=== PATIENT | female | born 1950 | race African-American/Black ===

== ENCOUNTER 2017-01-16 09:55 | Day surgery (SDC) | payer MEDICARE, MEDICAID ==
[~2017-01-16 09:55] MED LIST: KETOROLAC TROMETHAMINE 0.45% 4 DROP/0.4 ML DROPERETTE OD PRN
[2017-01-16] MEDS ORDERED: LIDOCAINE 1% INJ-PF (10 MG/ML) 30 ML SDV ONE (10:03)
[2017-01-16] MEDS ORDERED: TRYPAN BLUE 0.06 % OPH SOLN 0.5 ML DISP.SYRIN ONE ×2 (10:03→12:18)
[2017-01-16] MEDS ORDERED: EPINEPHRINE INJ/PF 1 MG/1 ML AMPULE ONE (10:03)
[2017-01-16] MEDS ORDERED: CHONDR SU A NA/HYALUR INTRAOC KIT (SURGICARE) ONE (10:04)
[2017-01-16] MEDS: TROPICAMIDE 1% OPH SOLN 3 ML OD PRN ×3 (10:15→10:41)
[2017-01-16] MEDS: TETRACAINE HCL 0.5% OPH SOLN 2 ML OD PRN ×3 (10:15→11:26)
[2017-01-16] MEDS: BESIFLOXACIN HCL 0.6% OPH SUSP 5 ML BOTTLE OD PRN ×3 (10:16→12:32)
[2017-01-16] MEDS: CYCLOPENTOLATE 0.2%/PHENYLEPHRINE 1% OPH SOLN 2 ML OD PRN ×3 (10:16→10:41)
[2017-01-16] MEDS ORDERED: LIDOCAINE 2% INJ (20 MG/ML) 20 ML MDV ONE ×2 (10:39→11:01)
[2017-01-16] MEDS ORDERED: BUPIVACAINE HCL 0.75% INJ/PF (7.5 MG/1 ML) 10 ML SDV ONE (10:39)
[2017-01-16] MEDS ORDERED: HYALURONIDASE INJ 150 UNIT/1 ML VIAL ONE (10:40)
[2017-01-16] MEDS ORDERED: MIDAZOLAM 2 MG/2 ML INJ ONE ×2 (10:47→11:34)
[2017-01-16] MEDS ORDERED: LIDOCAINE 2% INJ-PF (20 MG/ML) 10 ML AMPUL ONE (10:49)
[2017-01-16] MEDS ORDERED: CHONDR SU A NA/HYALUR SOD 0.5 ML DISP.SYRIN ONE ×4 (11:55→12:18)
[2017-01-16] MEDS ORDERED: TOBRAMYCIN SULFATE/DEXAMETH OPH OINTMENT 3.5 GM ONE (12:29)
--- NOTE | 2017-01-16 18:54 | [facility] OPERATIVE REPORT E ---
[facility] Operative Report NAME: SUSU PHILLIPS AGE: 66Y DATE OF SURGERY: 01/16/2017 ROOM: PREOPERATIVE DIAGNOSIS: 1. Mature cataract right eye. 2. Anterior synechia of the right eye. 3. Band keratopathy of the right eye. POSTOPERATIVE DIAGNOSIS: 1. Mature cataract right eye. 2. Anterior synechia of the right eye. 3. Band keratopathy of the right eye. OPERATION: 1. Pupilloplasty of the right eye. 2. Removal of band keratopathy. 3. Aborted cataract surgery. SURGEON: SREEKANTH LIRA M.D. ANESTHESIA: Topical with retrobulbar block with 2% lidocaine with 0.75% Marcaine in a 50-50 mixture, total block less than 2 mL. COMPLICATIONS: None. DESCRIPTION OF OPERATIVE REPORT: After obtaining appropriate informed consent, the patient was brought back to the operating room where the eye was prepped and draped in sterile fashion. At this point, the microscope was brought over to examine the eye. The patient was stretcher-bound prior to surgery, and therefore, I was not able to get a very detailed view of her eye. Prior to the operating room table, she did have a B scan performed to make sure that the eye was structurally intact prior to surgery. When I viewed the cornea, it was found that there was much more significant band keratopathy than I had previously noted on my last slit lamp exam which was approximately 8 months prior to this. I was concerned that there was not adequate view to perform the capsulorrhexis and cataract surgery. I decided to proceed with the first couple of steps of the cataract surgery. A 1.2 mm keratome was used to make a paracentesis. This was followed by installation of viscoelastic. A 2.4 mm keratome was used to make a temporal clear corneal incision. Following this, an iris sweep was used to break the anterior synechia and to try to reform a pupil. Following this, a 1.2 mm keratome was used to make another paracentesis directly 180 degrees from my temporal incision to help further release the iris. Upon removal of the iris from the scarred lens, I found a very fibrosed, calcific lens that was significantly scarred and was very mature. I inserted a Malyugin ring to try to dilate the pupil further. This was followed by staining of the anterior capsule with trypan blue dye. I felt like this was the point that I could get to to determine if I could proceed with any further cataract surgery. Unfortunately, even with operating from the head and tilting the microscope, I could only see half of the lens nucleus and felt that my risk outweighed the benefits of proceeding further with this case at this time. Therefore, I removed the Malyugin ring and the viscoelastic with irrigation aspiration. I made sure all the incisions were isiah negative. I instilled a drop of Besivance followed by a strip of TobraDex and a pressure patch and then a rigid shield. The patient woke up in postoperative recovery in stable condition. I explained prior to the case about the complexity of this surgery and explained again the steps that I took and how we had to avoid removing the cataract at this time so that we could reassess and figure out the best approach for this surgery due to the poor view of the cornea. The patient is to be on a regular diet. She is to leave the pressure patch on. DICTATING PHYSICIAN: SREEKANTH LIRA M.D. [id number] PHY#: [id number] ID: [id number] JOB#: [id number] ACCT: [id number] cc:SREEKANTH LIRA M.D. > MTDD
--- NOTE | 2017-01-16 19:03 | DISCHARGE SUMMARY E ---
Discharge Summary NAME: SUSU PHILLIPS : 1950 AGE: 66Y ADMITTED: 01/16/2017 DISCHARGED: 01/16/2017 DIAGNOSES: 1. Mature cataract right eye. 2. 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 3. Band keratopathy making a difficult view. 4. 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 The patient underwent surgery because she could not see faces or objects in front of her as well as the television. She underwent a pupilloplasty with aborted cataract surgery due to the poor view. DISCHARGE INSTRUCTIONS: She is to be on a regular diet. No bending at her waist, no heavy lifting. She should leave the pressure patch on with TobraDex for 24 hours, and I will see her for her 1-day postoperative tomorrow. DICTATING PHYSICIAN: SREEKANTH LIRA M.D. [id number] PHY#: [id number] ID: [id number] JOB#: [id number] ACCT: [id number] cc:SREEKANTH LIRA M.D. >
== END 2017-01-16 13:24 | disposition home health service (06) ==
LOC: SC 09:55
PROVIDERS: ATTEND Internal Medicine
PROC: 08Q8XZZ Repair Right Cornea, External Approach (ICD-10-PCS; 2017-01-16)
PROC: 08QC3ZZ Repair Right Iris, Percutaneous Approach (ICD-10-PCS; principal; 2017-01-16 11:00)
DX: H25.091 Other age-related incipient cataract, right eye (principal); H57.03 Miosis; H18.421 Band keratopathy, right eye; H21.511 Anterior synechiae (iris), right eye; H20.13 Chronic iridocyclitis, bilateral; Z96.1 Presence of intraocular lens; I10 Essential (primary) hypertension; K21.9 Gastro-esophageal reflux disease without esophagitis; G35 Multiple sclerosis; J45.909 Unspecified asthma, uncomplicated; M19.90 Unspecified osteoarthritis, unspecified site; E78.00 Pure hypercholesterolemia, unspecified; M81.0 Age-related osteoporosis without current pathological fracture; I25.10 Atherosclerotic heart disease of native coronary artery without angina pectoris; Z79.51 Long term (current) use of inhaled steroids; Z79.01 Long term (current) use of anticoagulants; Z79.4 Long term (current) use of insulin; Z86.73 Personal history of transient ischemic attack (TIA), and cerebral infarction without residual deficits; Z79.899 Other long term (current) drug therapy
CPT/HCPCS: 82962; 66762; 66984; 66999; J2250; J3490 ×7; A9270; J0171; J3470; 142